=== PATIENT | female | born 1980 | race Caucasian/White ===

== ENCOUNTER → 2023-07-28 10:29 | Outpatient (REF) | payer BC, SELFPAY | LOC: WDC 10:29 | PROVIDERS: ATTENDING PHYSICIAN Nurse Practitioner Family | DX: Z12.31 Encounter for screening mammogram for malignant neoplasm of breast (principal) | CPT/HCPCS: 77063; 77067 ==

== ENCOUNTER → 2023-08-01 09:55 | Outpatient (REF) | payer BC, SELFPAY | LOC: WDC 09:55 | PROVIDERS: ATTENDING PHYSICIAN Nurse Practitioner Family | DX: R92.8 Other abnormal and inconclusive findings on diagnostic imaging of breast (principal) | CPT/HCPCS: 76642 ==

== ENCOUNTER → 2024-08-22 13:54 | Outpatient (REF) | payer BC, SELFPAY | LOC: WDC 13:54 | PROVIDERS: ATTENDING PHYSICIAN Nurse Practitioner Family | DX: Z12.31 Encounter for screening mammogram for malignant neoplasm of breast (principal) | CPT/HCPCS: 77063; 77067 ==

== ENCOUNTER → 2025-01-02 10:51 | Outpatient (REF) | payer BC, SELFPAY | LOC: WDC 10:51 | PROVIDERS: ATTENDING PHYSICIAN Nurse Practitioner Family | DX: R92.333 Mammographic heterogeneous density, bilateral breasts (principal) | CPT/HCPCS: 76641 ==

== ENCOUNTER 2025-02-11 09:35 | Emergency (ER) | payer BC, SELFPAY ==
[2025-02-11 09:43] VITALS: BP 102/64
--- NOTE | 2025-02-11 09:48 | ED.GENMED ---
History of Present Illness
<Elba Garcia MD, Resident - Last Filed: 02/11/25 11:15>
General
Chief Complaint: Fainting/Passed Out
Source: patient and family
Exam Limitations: none
Time Seen by Provider: 02/11/25 09:40
Nursing documentation reviewed up to this point in time: agreed with
History of Present Illness
History of Present Illness:
Pt is a 44yo F with no significant PMH who presents following episode of flushing, lightheadedness, & feeing near fainting at home.
Pt received COVID & flu vaccines at the same time yesterday. After that, she began feeling unwell, with chills/feverish sensation, nausea, & myalgias. She took an ibuprofen but was unable to sleep last night given the discomfort. She fell asleep for
only about 1 hour. This am, she got up and suddenly felt lightheaded, warm/flushed, nauseated, and with small black spots in her vision. She felt that she was about to pass out, so ran to get her mom and yelled out for help. She felt better after
lying on the cool tile floor and putting a fan in front of her face and having a sip of water. No LOC. They then called EMS. Per mom at bedside, BP 80/40 in ambulance.
Of note, pt states that she has a hx of passing out, feeling lightheaded. She states that she has chronic hypotension. Denies any focal weakness or numbness, denies any blurry vision, denies any MILLER, denies any palpitations.
Past History
<Elba Garcia MD, Resident - Last Filed: 02/11/25 11:15>
Past History
ED Past Medical History: None
Review of Systems
<Elba Garcia MD, Resident - Last Filed: 02/11/25 11:15>
Review of Systems
All Other Systems: ROS reviewed and negative except as documented in HPI and ROS
Constitutional: Reports fatigue, sleep disturbance and chills
EENT: Reports no symptoms
Respiratory: Reports no symptoms
Cardiac: Reports no symptoms
ABD/GI: Reports nausea
: Reports no symptoms
Musculoskeletal: Reports no symptoms
Skin: Reports no symptoms
Neurological: Reports dizzy and weakness
Psychiatric: Reports no symptoms
Phy Exam
<Elba Garcia MD, Resident - Last Filed: 02/11/25 11:15>
General Physical Exam
General Presentation: well appearing and no apparent distress
General age: appears stated age
General Skin: warm and dry
General Habitus: normal
General Mental: alert
ENT Exam
ENT Exam: EOMI
Cardiovascular Exam
Cardiovascular Exam: regular rate/rhythm and no edema
Heart Sounds: normal
Pulmonary Exam
Pulmonary Exam: lungs clear and no respiratory distress
Gastrointestinal Exam
Gastrointestinal Exam: non tender, soft and non distended
Neurological Exam
Neurological Exam: alert, oriented x3, CN II-XII intact and no motor deficits
Musculoskeletal Exam
Musculoskeletal Exam: no edema
Skin Exam
Skin Exam: normal color and warm/dry
Psychiatric Exam
Psychiatric Exam: normal mood/affect
Course
<Elba Garcia MD, Resident - Last Filed: 02/11/25 11:15>
Orders/Labs/Results
Orders:
Orders
02/11/25 09:48
Electrocardiogram (*1) Urgent
Reason for Study: Chest Pain
EKG- Treatment ONCE
Test Result ONCE
02/11/25 09:51
Complete Blood Count/With Diff Urgent
Comprehensive Metabolic Panel Urgent
HCG, Serum Qualitative Screen Urgent
Comment: Notify provider if positive test present
02/11/25 10:03
0.9% Sodium Chloride 1000 ml [Nss] 1,000 ml IV BOLUS
02/11/25 10:04
Orthostatic VS- Treatment ONCE
Abnormal Lab Results
02/11/25
09:51
Hgb 11.1 L g/dL
(12.0-16.0)
Hct 33.9 L %
(37.0-47.0)
MCV 80.1 L fL
(81.0-99.0)
MCH 26.2 L pg
(27.0-31.0)
MCHC 32.7 L g/dL
(33.0-37.0)
Absolute Neuts (auto) 8.8 H 10^3/uL
(1.4-6.5)
Absolute Lymphs (auto) 0.6 L 10^3/uL
(1.2-3.4)
Neutrophils % 87.3 H %
(42.2-75.2)
Lymphocytes % 5.7 L %
(20.5-51.1)
Sodium 134 L mmol/L
(135-145)
Glucose 107 H mg/dl
(70-99)
02/11/25 09:51
02/11/25 09:51
Vital Signs
Initial and Last Documented VS:
Initial Vital Signs
Temp Pulse Resp BP Pulse Ox
98.2 F 92 20 102/64 98
02/11/25 09:43 02/11/25 09:43 02/11/25 09:43 02/11/25 09:43 02/11/25 09:43
Last Documented Vital Signs
Temp Pulse Resp BP Pulse Ox
100.2 F 97 25 104/63 100
02/11/25 11:05 02/11/25 11:15 02/11/25 11:15 02/11/25 11:02 02/11/25 11:15
<Mohini Jefferson, DO - Last Filed: 02/11/25 11:46>
Orders/Labs/Results
Orders:
Orders
02/11/25 09:48
Electrocardiogram (*1) Urgent
Reason for Study: Chest Pain
EKG- Treatment ONCE
Test Result ONCE
02/11/25 09:51
Complete Blood Count/With Diff Urgent
Comprehensive Metabolic Panel Urgent
HCG, Serum Qualitative Screen Urgent
Comment: Notify provider if positive test present
02/11/25 10:03
0.9% Sodium Chloride 1000 ml [Nss] 1,000 ml IV BOLUS
02/11/25 10:04
Orthostatic VS- Treatment ONCE
Abnormal Lab Results
02/11/25
09:51
Hgb 11.1 L g/dL
(12.0-16.0)
Hct 33.9 L %
(37.0-47.0)
MCV 80.1 L fL
(81.0-99.0)
MCH 26.2 L pg
(27.0-31.0)
MCHC 32.7 L g/dL
(33.0-37.0)
Absolute Neuts (auto) 8.8 H 10^3/uL
(1.4-6.5)
Absolute Lymphs (auto) 0.6 L 10^3/uL
(1.2-3.4)
Neutrophils % 87.3 H %
(42.2-75.2)
Lymphocytes % 5.7 L %
(20.5-51.1)
Sodium 134 L mmol/L
(135-145)
Glucose 107 H mg/dl
(70-99)
02/11/25 09:51
02/11/25 09:51
Vital Signs
Initial and Last Documented VS:
Initial Vital Signs
Temp Pulse Resp BP Pulse Ox
98.2 F 92 20 102/64 98
02/11/25 09:43 02/11/25 09:43 02/11/25 09:43 02/11/25 09:43 02/11/25 09:43
Last Documented Vital Signs
Temp Pulse Resp BP Pulse Ox
100.2 F 97 25 104/63 100
02/11/25 11:05 02/11/25 11:15 02/11/25 11:15 02/11/25 11:02 02/11/25 11:15
<Elba Garcia MD, Resident - Last Filed: 02/11/25 11:15>
MDM/Problems Addressed
Differential Diagnosis Includes:
Most c/w vasovagal pre-syncope, exacerbated by likely orthostasis/low volume status/sleep deprivation/vaccine rxn; c/w prior episodes & hx & sx
BP 102/64 here
Unlikely cardiogenic syncope, epileptic event
MDM/Problems Addressed:
- EKG
- 1 L NSS
- CBC, CMP
- Orthostatic vitals
<Elba Garcia MD, Resident - Last Filed: 02/11/25 11:15>
*Pulse Oximetry
SaO2: 98
Oxygen Mode of Delivery: Room air
Patient hypoxic: no
*EKG
Interpreted by ED Provider?: Yes
EKG Intrepretation Date: 02/11/25
Interpretation: normal
Rate: normal
Rhythm: sinus
[place]: normal axis
Interval: normal interval
QRS Pattern: normal QRS
Ischemia: no ischemia
*Critical Care Note
Total Time (30-74mins, 75-104mins- exclusive of procedures): Not Applicable
<Elba Garcia MD, Resident - Last Filed: 02/11/25 11:15>
Update Note
Update Note:
11:00am
CBC with mild anemia
Vitals without orthostasis
Discussed likely vasovagal pre-syncope, importance of remaining well-hydrated, can wear compression socks, space out COVID & flu by 1 week next yr
ED Attending Note
<Elba Garcia MD, Resident - Last Filed: 02/11/25 11:15>
-
Portions of this chart may have been created with voice recognition software.� Occasional wrong word or��sound alike� substitutions may have occurred due to the inherent limitations of voice recognition software.
<Mohini Jefferson DO - Last Filed: 02/11/25 11:46>
ED Attending Note
Patient seen and examined by attending physician: Yes
I performed the substantive portion of visit, reviewed & personally made and approve the management plan that is documented in note by myself or ALEJANDRA.: Yes
I performed a history and physical exam of patient and discussed management with resident, I reviewed resident's note and agree with documented findings and plan of care.: Yes
ED Attending Note:
44-year-old female without significant past medical history presenting to the emergency department for near syncope. Patient reports that yesterday she got her COVID and flu vaccine at the same time. Last night she had myalgias and chills. When
she woke up this morning, felt hot and lightheaded and felt like she was going to pass out. She denies any full syncopal episode. Does report history of syncope in the past as well as history of mildly low blood pressure. Denies chest pain or
difficulty breathing. Denies abdominal pain or GI complaints. Vitals on arrival significant for low-grade temperature.
On exam patient is resting comfortably, no acute distress or discomfort. Unremarkable cardiac and pulmonary exam. No clinical signs of severe dehydration. EKG obtained on arrival which is sinus rhythm without acute ischemic abnormality. No focal
neurologic deficits. Ultimately suspect mild in volume depletion in conjunction with vaccinations temperature as etiology of symptoms. Present concern for severe etiology of the patient's presenting complaint. 1 L of IV fluid administered for
patient's symptoms. Labs obtained prior to my assessment, unremarkable. At this time feel stable for discharge with continued outpatient supportive therapy with oral hydration and Tylenol and Motrin as needed. Return precautions discussed
Discharge Plan
Departure
Patient Disposition: Home (Routine Discharge)
Date of Disposition: 02/11/25
Time of Disposition: 11:41
Patient with high blood pressure during this ER visit?: No
Condition: Good
Covid-19: Not Applicable
Discharge Problem:
Vasovagal near-syncope
Instructions: Syncope (fainting) (DC)
Referrals:
Michelle Gallego CRNP [Family Provider, [facility]]
Activity Restrictions/Additional Instructions:
You were seen in the ED today for an episode that was most likely vasovagal near-syncope. This could have been triggered by feeling unwell from the two vaccines, your low blood pressure, lack of sleep, and low hydration/food intake due to nausea.
Your EKG showed no arrhythmia that would have caused this episode. We gave you 1 L of fluids.
You can space out COVID & flu vaccines by 1 week next year. Generally, be sure to stay well-hydrated. If you are feeling lightheaded with low blood pressure, wearing compression socks can help with that.
Return to the ED if you have sudden loss of consciousness accompanied by chest pain, palpitations, or trauma to the head.
Interventions
Interventions:
*Risk Screen - Suicide Last Done: 02/11/25 09:43
*General Assessment Last Done: 02/11/25 09:43
*Neglect/Abuse Screening Last Done: 02/11/25 09:43
*ED COVID-19 Vaccine History Last Done: 02/11/25 10:00
*ED Influenza Vaccine History Last Done: 02/11/25 10:00
[facility] Risk Assessment Tool Last Done: 02/11/25 10:00
ED- Cardiac Assessment Last Done: 02/11/25 10:00
ED- Neurological Assessment Last Done: 02/11/25 10:00
Discharge Date and Time
Print Language: ZAMBIAN
[2025-02-11 10:00] VITALS: BP 99/63
[2025-02-11] MEDS: NSS 1000 IV (10:06)
[2025-02-11 10:24] LABS: Hematocrit 33.9 % (37.0-47.0); Hemoglobin 11.1 g/dL (12.0-16.0); Mean Corp Hgb Conc. 32.7 g/dL (33.0-37.0); Mean Corpuscular Volume 80.1 fL (81.0-99.0); Nucleated Red Blood Cells % 0 %; Platelet Count 221 10^3/uL (130-400); Red Cell Dist. Width 13.6 % (11.5-14.5)
[2025-02-11 10:27] LABS: HCG, Serum Qualitative Screen Negative
[2025-02-11 10:30] LABS: ALT (SGPT) 15 U/L (0-35); AST (SGOT) 18 U/L (14-36); Albumin 4.0 g/dl (3.5-5.0); Alkaline Phosphatase 66 U/L (38-126); Blood Urea Nitrogen 16 mg/dl (7-17); Calcium 8.8 mg/dl (8.4-10.2); Carbon Dioxide 26 mmol/L (22-30); Chloride 105 mmol/L (98-107); Glucose 107 mg/dl (70-99); Potassium 4.2 mmol/L (3.5-5.1); Sodium 134 mmol/L (135-145); Total Protein 6.8 g/dl (6.3-8.2); eGFR > 60.00
[2025-02-11 11:00] VITALS: BP 102/58
[2025-02-11 11:02] VITALS: BP 104/63
[2025-02-11 11:05] VITALS: BP 102/58; BP 104/63; BP 99/58; PULSE 108; PULSE 95; PULSE 99
[2025-02-11 12:00] VITALS: BP 107/67
== END 2025-02-11 12:31 | disposition home or self-care (01) ==
LOC: EMR 09:35
PROVIDERS: EMERGENCY PHYSICIAN Student in an Organized Health Care Education/Training Program; FAMILY PHYSICIAN Nurse Practitioner Family
DX: R55 Syncope and collapse (principal); I95.89 Other hypotension
CPT/HCPCS: 99284; 96360; 80053; 84703; 85025; 93005